=== PATIENT | male | born 1970 | race Hispanic/Latino ===

== ENCOUNTER → 2019-05-27 | Outpatient (CLI) | payer OTHER, SELFPAY ==
[~2019-05-27] MED LIST: ASPI-1005 PO; LEVO150T11 PO; LISI5TAB PO; LOVA20TA3 PO; METO25 PO
== END | disposition home or self-care (01) ==
LOC: SHCH 07:58
PROVIDERS: ATTEND Internal Medicine Cardiovascular Disease
DX: I25.10 Atherosclerotic heart disease of native coronary artery without angina pectoris (principal)
CPT/HCPCS: 93306